=== PATIENT | male | born 1985 | race Caucasian/White ===

== ENCOUNTER 2017-02-02 22:43 | Emergency (ER) | payer SELFPAY ==
[~2017-02-02] VITALS: Ht 182.9 cm; Wt 88.5 kg
[2017-02-02 22:45] VITALS: BP 149/90
[2017-02-03] MEDS ORDERED: IBUPROFEN 600 MG TAB PO ONE (00:30)
[2017-02-03] MEDS ORDERED: CLINDAMYCIN 600 MG/4 ML VL IM ONE (00:30)
[2017-02-03] MEDS ORDERED: HYDROcodone-ACET 5/325MG TAB PO ONE (00:45)
== END 2017-02-03 01:05 | disposition home or self-care (01) ==
LOC: ER 22:43
DX: K04.7 Periapical abscess without sinus (principal); K02.9 Dental caries, unspecified; F17.210 Nicotine dependence, cigarettes, uncomplicated
CPT/HCPCS: 96372

== ENCOUNTER 2017-09-04 19:33 | Emergency (ER) | payer OTHER ==
[~2017-09-04] VITALS: Ht 180.3 cm; Wt 81.6 kg
[2017-09-04] MEDS ORDERED: LORazepam 2MG/ML-1ML VIAL IM ONE (20:00)
[2017-09-04] MEDS ORDERED: TETRACAINE HCL 0.5% OPTH(EYE) SOLN 4ML LEFTEYE ONE (20:00)
[2017-09-04 21:25] VITALS: BP 128/81
== END 2017-09-04 22:04 | disposition home or self-care (01) ==
LOC: EDBD 19:33 → ER 19:36
DX: H10.32 Unspecified acute conjunctivitis, left eye (principal); F15.10 Other stimulant abuse, uncomplicated; F11.10 Opioid abuse, uncomplicated; F12.10 Cannabis abuse, uncomplicated; F17.210 Nicotine dependence, cigarettes, uncomplicated; R42 Dizziness and giddiness
CPT/HCPCS: 70450

== ENCOUNTER 2023-05-22 15:41 | Emergency (ER) | payer MEDICAID, OTHER ==
[~2023-05-22] VITALS: Ht 182.9 cm; Wt 97.1 kg
[2023-05-22 16:43] LABS: Basophils # (auto) 0 10 ^3/uL (0-0.2); Basophils % (auto) 0.2 % (0.0-2.0); Eosinophils # (auto) 0 10 ^3/uL (0-0.8); Eosinophils % (auto) 0.2 % (0.0-7.0); Hematocrit 31.1 % (41.0-53.0); Hemoglobin 10.4 g/dL (13.5-17.5); Lymphocytes # (auto) 1.4 10 ^3/uL (0.4-5.4); Lymphocytes % (auto) 12.5 % (10.0-50.0); Mean Corpuscular Hemoglobin 27.5 pg (28.0-32.0); Mean Corpuscular Hgb Conc. 33.3 g/dL (32.0-36.0); Mean Corpuscular Volume 82.6 fL (80.0-100.0); Monocytes % (auto) 8.6 % (0.0-12.0); Neutrophils % (auto) 78.5 % (37.0-80.0); Nucleated Red Blood Cells % 0.1 %; Red Blood Cells 3.76 10^6/uL (4.5-5.90); Red Cell Distribution Width 13.2 % (11.8-14.3); White Blood Cell 11.4 10^3/uL (4.4-10.8)
[2023-05-22 17:04] LABS: Alanine Aminotransferase 22 U/L (7-40); Albumin 4.3 g/dL (3.2-4.8); Alkaline Phosphatase 109 U/L (46-116); Anion Gap 4 (5-15); Aspartate Aminotransferase 22 U/L (13-40); BUN/Creatinine Ratio 10.7 (10.0-20.0); Bilirubin, Total 0.7 mg/dL (0.2-1.0); Blood Urea Nitrogen 9 mg/dL (9-23); Calcium 9.2 mg/dL (8.5-10.1); Carbon Dioxide 30 mmol/L (20-30); Chloride 99 mmol/L (98-107); Glucose 108 mg/dL (74-106); Potassium 3.3 mmol/L (3.5-5.1); Sodium 133 mmol/L (136-145); Total Protein 8.5 g/dL (5.7-8.2)
[2023-05-22 17:34] LABS: Urine Bacteria NONE SEEN /hpf (None Seen); Urine Blood Negative /uL (Negative); Urine Clarity Clear (Clear); Urine Color Yellow (Yellow); Urine Mucus FEW (None Seen); Urine Protein, UAD 1+ (Negative); Urine Specific Gravity 1.027 (1.001-1.035); Urine WBC 1 /hpf (0 - 3)
[2023-05-22 18:35] LABS: Erythrocyte Sedimentation Rate 102 mm/hr (0-20)
[2023-05-22 20:11] LABS: Amphetamine Screen, Urine Pos (NEGATIVE); Barbiturate Scree,Urine Neg (NEGATIVE); Benzodiazephine Screen, Urine Neg (NEGATIVE); Cannabinoid Screen, Urine Neg (NEGATIVE); Cocaine Screen, Urine Pos (NEGATIVE); Opiate Scree,Urine Neg (NEGATIVE); Phencyclidine Screen, Urine Neg (NEGATIVE)
[2023-05-22] MEDS ORDERED: CLIN150C PO (20:15)
[2023-05-22] MEDS: CLINDAMYCIN 600MG IV 50 ML IV ONE (22:07)
[2023-05-22 22:58] VITALS: BP 104/67; PULSE 92; RESP 18; TEMP 97.5; O2SAT 97
== END 2023-05-22 23:04 | disposition home or self-care (01) ==
LOC: ER 15:41
DX: L03.115 Cellulitis of right lower limb (principal); L03.116 Cellulitis of left lower limb; F17.210 Nicotine dependence, cigarettes, uncomplicated
CPT/HCPCS: 36415; 80053; 80307; 81001; 85025; 85652; 93970; 96365; 99285; J3490